=== PATIENT | female | born 1990 | race Caucasian/White ===

== ENCOUNTER 2019-09-28 12:26 | Emergency (ER) | payer MEDICARE, MEDICAID ==
[~2019-09-28] VITALS: Ht 147.3 cm; Wt 39.5 kg
[~2019-09-28 12:26] MED LIST: ATIVAN0.5 MG PO; CENTRUM PERFORM1 TAB PO; CLEOCIN T1% TP; DEPAKOTE250 MG PO; FLONASE NASAL S16 GM NS; FLOVENT 110MCG7.9 GM IH; LORATADINE10 MG PO; NEXIUM40 MG PO; OMNARIS50 MCG/Act NS; PRILOSEC 20MG20 MG PO; PROAIR HFA0.09 MG/AC IH; PULMICORT0.25 MG/2 IH; RISPERDAL 0.5M0.5 MG PO; RISPERDAL1 MG PO; SINGULAIR10 MG PO; STOOL SOFTENER100 MG PO; VITAMIN D3400 IU PO; XOPENEX1.25 MG/3 IH; ZOLOFT 50MG50 MG PO
[2019-09-28 12:35] VITALS: BP 123/78; TEMP 98.1
[2019-09-28] MEDS ORDERED: SINGULAIR 110 MG/TAB PO (13:00)
[2019-09-28] MEDS ORDERED: FLONASE SENSIM9.9 ML NS (13:01)
[2019-09-28] MEDS ORDERED: 00186-0370-20 IH (13:01)
[2019-09-28] MEDS ORDERED: COGENTIN 1MG1 MG/TAB PO (13:02)
[2019-09-28] MEDS ORDERED: RISPERDAL 0.5M0.5 MG PO (13:04)
[2019-09-28] MEDS ORDERED: REMERON 15M15 MG/TA1 PO (13:05)
[2019-09-28] MEDS ORDERED: WELLBUTRIN SR100 M1 PO (13:06)
[2019-09-28 13:27] VITALS: PULSE 109
== END 2019-09-28 13:27 | disposition home or self-care (01) ==
LOC: COL.ER 12:26
DX: J06.9 Acute upper respiratory infection, unspecified (principal)

== ENCOUNTER 2020-12-18 11:03 | Emergency (ER) | payer MEDICARE, MEDICAID ==
[~2020-12-18] VITALS: Ht 147.3 cm; Wt 50.5 kg
[~2020-12-18 11:03] MED LIST changes: +00186-0370-20 IH; +COGENTIN 1MG1 MG/TAB PO; +FLONASE SENSIM9.9 ML NS; +REMERON 15M15 MG/TA1 PO; +SINGULAIR 110 MG/TAB PO; +WELLBUTRIN SR100 M1 PO
[2020-12-18 11:07] VITALS: TEMP 98.7
[2020-12-18] MEDS ORDERED: MIRALAX119G PO (11:51)
[2020-12-18] MEDS ORDERED: DULCOLAX STOOL100 MG PO (11:51)
[2020-12-18 12:00] VITALS: BP 128/88; PULSE 98
== END 2020-12-18 12:00 | disposition home or self-care (01) ==
LOC: COL.ER 11:03
DX: K59.00 Constipation, unspecified (principal); F32.9 Major depressive disorder, single episode, unspecified; F41.9 Anxiety disorder, unspecified; Z88.1 Allergy status to other antibiotic agents; Z88.6 Allergy status to analgesic agent; Z88.8 Allergy status to other drugs, medicaments and biological substances; Z79.899 Other long term (current) drug therapy